=== PATIENT | male | born 1965 | race African-American/Black ===

== ENCOUNTER 2016-10-27 18:10 | Emergency (ER) | payer BC ==
[2016-10-27 19:13] LABS: URINE SOURCE CLEAN CATCH
[2016-10-27 19:19] LABS: URINE APPEARANCE CLEAR; URINE BLOOD 2+ (NEG); URINE COLOR DK YELLOW; URINE GLUCOSE NEG (NEG); URINE KETONE 1+ (NEG); URINE LEUKOCYTE ESTERASE 1+ (NEG); URINE NITRATE NEG (NEG); URINE PROTEIN 1+ (NEG); URINE SPECIFIC GRAVITY 1.037 (1.003-1.035)
[2016-10-27 19:22] LABS: CULTURE INDICATED? YES; URBCS1 AUWI 25-50 /[HPF] (0-2); URINE BACTERIA AUWI NEG (NEGATIVE); URINE SQUAMOUS EPITHELIAL CELL OCC /[HPF]
[2016-10-27 19:26] LABS: URINE BILIRUBIN NEG (NEG)
== END 2016-10-27 19:40 | disposition left against medical advice (07) ==
LOC: CED 18:10
DX: Z53.21 Procedure and treatment not carried out due to patient leaving prior to being seen by health care provider (principal)
CPT/HCPCS: 81003; 87086